=== PATIENT | male | born 1995 | race Caucasian/White ===

== ENCOUNTER 2017-11-04 18:04 | Emergency (ER) | payer OTHER ==
[~2017-11-04] VITALS: Ht 180.3 cm; Wt 82.0 kg
[2017-11-04 18:06] VITALS: TEMP 36.7; Ht 180.3 cm; Wt 82.0 kg
[2017-11-04] MEDS ORDERED: LIDOCAINE HCL 2% JELLY 30 ML TUBE EXT STA (18:24)
[2017-11-04] MEDS ORDERED: CNC/54 PO (19:04)
[2017-11-04] MEDS ORDERED: METH10TA4 PO ×2 (19:04)
[2017-11-04] MEDS ORDERED: MISCCAP80 (19:04)
[2017-11-04] MEDS ORDERED: IBUPROFEN 600 MG TAB ONE (19:10)
--- NOTE | 2017-11-04 19:32 | DIAGNOSTIC IMAGING REPORT ---
RIGHT FOREARM 2 VIEWS HISTORY: right forearm pain COMPARISON: None. FINDINGS: Mild displaced fracture within the proximal to mid shaft of the radius. This demonstrates up to 5 mm of radial and dorsal displacement. The ulna appears intact. Small elbow effusion. No elbow dislocation. No radiopaque foreign bodies. IMPRESSION: 1. Mildly displaced fracture within the proximal to mid shaft of the radius. 2. Small elbow effusion. Electronically signed by: Kenan Rosenberg M.D. 11/04/2017 7:31 PM Dictated Date/Time: 11/04/2017 7:30 PM
[2017-11-04] MEDS ORDERED: CEPHALEXIN MONOHYDRATE 250 MG CAP PO STA (19:57)
[2017-11-04] MEDS ORDERED: CEPHALEXIN 500MG HOME PACK 1 EA BTL PO STA (19:57)
[2017-11-04] MEDS ORDERED: CEPH500C PO (20:00)
[2017-11-04] MEDS ORDERED: OXYCODONE IR HOME PACK PO STA (20:01)
[2017-11-04] MEDS ORDERED: OXYC1TAB3 PO (20:03)
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
[2017-11-04 20:32] VITALS: BP 118/70; PULSE 76; O2SAT 98
== END 2017-11-04 20:33 | disposition home or self-care (01) ==
LOC: C.EDB 18:05 → C.EDD 20:33
DX: S52.181A Other fracture of upper end of right radius, initial encounter for closed fracture (principal); W23.0XXA Caught, crushed, jammed, or pinched between moving objects, initial encounter; Z88.1 Allergy status to other antibiotic agents; F90.9 Attention-deficit hyperactivity disorder, unspecified type